=== PATIENT | female | born 1950 | race Asian ===

== ENCOUNTER 2017-10-26 13:17 | Outpatient (CLI) | payer MEDICARE, BC ==
[2017-10-26 13:35] LABS: TOTAL HEMOGLOBIN 13.6 G/dl (12.0-16.0)
== END 2017-10-26 23:59 | disposition home or self-care (01) ==
LOC: RT 13:17
PROVIDERS: ATTEND Internal Medicine Cardiovascular Disease
DX: J43.8 Other emphysema (principal)
CPT/HCPCS: 85018; 94010; 94727; 94729; L3650

== ENCOUNTER 2018-04-18 10:08 | Emergency (ER) | payer MEDICARE, BC ==
[~2018-04-18] VITALS: Ht 160 cm; Wt 64.0 kg
[2018-04-18 11:04] LABS: BASOPHILS % (AUTO) 0.4 % (0-1); EOSINOPHILS % (AUTO) 0.7 % (0-6); HEMATOCRIT 37.3 % (35.0-45.0); HEMOGLOBIN 12.6 g/dl (12.0-16.0); LYMPHOCYTES # (AUTO) 1.5 X10'3 (1.1-4.8); LYMPHOCYTES % (AUTO) 32.6 % (21-51); MEAN CORPUSCULAR HEMOGLOBIN 29.8 PG (27.0-31.0); MEAN CORPUSCULAR HGB CONC 33.8 % (33.0-36.5); MEAN PLATELET VOLUME 7.7 FL (7.4-10.4); MONOCYTES # (AUTO) 0.3 X10'3 (0-0.9); MONOCYTES % (AUTO) 6.9 % (2-12); NEUTROPHILS # (AUTO) 2.6 X10'3 (1.8-7.7); NEUTROPHILS % (AUTO) 59.4 % (42-75); PLATELET COUNT 267 X10'3 (140-440); RED BLOOD COUNT 4.23 X10'6 (4.20-5.60); RED CELL DISTRIBUTION WIDTH 13.3 % (11.5-14.5); WHITE BLOOD COUNT 4.5 X10'3 (4.5-11.0)
[2018-04-18] MEDS ORDERED: normal saline 1000ML IV soln IVB ONE (11:10)
[2018-04-18 11:18] LABS: ALANINE AMINOTRANSFERASE 30 U/L (12-78); ALBUMIN 3.5 G/DL (3.4-5.0); ALKALINE PHOSPHATASE 115 IU/L (46-116); ANION GAP 7 (8-16); ASPARTATE AMINO TRANSFERASE 15 U/L (10-37); BILIRUBIN,TOTAL 0.4 MG/DL (0.1-1.0); BLOOD UREA NITROGEN 14 MG/DL (7-18); BUN/CREATININE RATIO 18.4 (6.6-38.0); CALCIUM 8.9 MG/DL (8.5-10.1); CHLORIDE 107 MMOL/L (99-107); CREATININE 0.76 MG/DL (0.40-0.90); GLUCOSE 104 MG/DL (70-104); POTASSIUM 3.6 MMOL/L (3.5-5.1); SODIUM 140 MMOL/L (135-145); TOTAL CARBON DIOXIDE 26.4 MMOL/L (24-32); eGFR 76 ML/MIN
[2018-04-18 11:26] LABS: MAGNESIUM 2.1 MG/DL (1.5-2.4)
[2018-04-18 12:44] LABS: CLARITY,URINE CLEAR (Clear); COLOR,URINE STRAW (Yellow); GLUCOSE, URINE NEGATIVE (Neg); KETONES,URINE NEGATIVE (Neg); LEUKOCYTE ESTERASE ,URINE NEGATIVE (Neg); NITRITES, URINE NEGATIVE (Neg); OCCULT BLOOD,URINE NEGATIVE (Neg); PH,URINE 6.5 (4.8-8.0); PROTEIN,URINE NEGATIVE (Neg); UROBILINOGEN,URINE 0.2 E.U/dL (0.2-1.0)
[2018-04-18 12:45] LABS: UA COLLECTION TYPE CLN CATCH MIDSTREAM
[2018-04-18] MEDS ORDERED: MECL-111 PO (12:57)
[2018-04-18 13:37] VITALS: BP 124/73
== END 2018-04-18 13:42 | disposition home or self-care (01) ==
LOC: ER 10:08
DX: E86.0 Dehydration (principal); R42 Dizziness and giddiness; R11.0 Nausea
CPT/HCPCS: 36415; 71045; 80053; 81003; 83735; 83880; 84145; 84484; 85025; 93005; 96360; 96361; 99284; J7030

== ENCOUNTER 2023-01-22 16:28 | Emergency (ER) | payer BC, MEDICARE ==
[~2023-01-22] VITALS: Ht 157.5 cm; Wt 61.0 kg
[~2023-01-22 16:28] MED LIST: MECL-159 PO
[2023-01-22 16:41] VITALS: BP 126/72; PULSE 92; RESP 18; TEMP 98.7; O2SAT 97
== END 2023-01-22 18:37 | disposition left against medical advice (07) ==
LOC: ER 16:29
DX: S81.852A Open bite, left lower leg, initial encounter (principal); Z53.21 Procedure and treatment not carried out due to patient leaving prior to being seen by health care provider; W54.0XXA Bitten by dog, initial encounter; Y93.89 Activity, other specified; Y92.89 Other specified places as the place of occurrence of the external cause; Y99.8 Other external cause status
CPT/HCPCS: 99281